=== PATIENT | female | born 1945 | race Caucasian/White ===

== ENCOUNTER 2017-07-04 09:45 | Outpatient (CLI) | payer MEDICARE, OTHER | END 2017-07-04 09:46 | disposition home or self-care (01) | LOC: BICMAMMO 09:45 | PROVIDERS: ATTEND Family Medicine | DX: Z12.31 Encounter for screening mammogram for malignant neoplasm of breast (principal) | CPT/HCPCS: 77063; 77067 ==

== ENCOUNTER 2018-04-11 09:39 | Outpatient (CLI) | payer MEDICARE, OTHER ==
--- NOTE | 2018-04-11 10:21 | RAD ---
TWO VIEWS CHEST: Comparison: 11-20-17 History: Dyspnea. FINDINGS: Two views of the chest shows a normal sized cardiomediastinal silhouette. There is no evidence of con solidation, mass, or pleural effusion. Degenerative changes are seen in the spine. IMPRESSION: No evidence of acute cardiopulmonary disease. POS: C
== END 2018-04-11 09:40 | disposition home or self-care (01) ==
LOC: RAD 09:39
PROVIDERS: ATTEND Internal Medicine Critical Care Medicine
DX: R06.00 Dyspnea, unspecified (principal)
CPT/HCPCS: 71046

== ENCOUNTER 2018-04-22 17:32 | Emergency (ER) | payer MEDICARE, OTHER ==
[~2018-04-22 17:32] MED LIST: ISOVUE-370 76%-LOCM 1 ML ONE
[2018-04-22] MEDS ORDERED: Ketorolac Tromethamine 30 MG/ML VIAL ONE (18:21)
[2018-04-22 18:22] LABS: #Basophils 0.1 thou/uL (0.0-0.2); #Eosinphils 0.3 thou/uL (0.0-0.7); #Monocytes 0.9 thou/uL (0.11-0.59); #Neutrophils 6.8 thou/uL (1.40-6.50); %Basophils 1.1 % (0.0-1.0); %Eosinophils 2.6 % (0.0-10.0); %Lymphocytes 27.3 % (21.0-51.0); %Monocytes 8.2 % (0.0-10.0); %Neutrophils 60.9 % (42.0-75.0); Hemoglobin 15.1 g/dL (12.0-16.0); Mean Corpuscular HGB CONC 32.8 g/dL (32.0-36.0); Mean Corpuscular Hemoglobin 30.3 pg (27.0-31.0); Mean Corpuscular Volume 92.5 fL (78.0-98.0); Mean Platelet Volume 7.9 fL (7.4-10.4); Platelet Count 251 thou/uL (130-400); Red Blood Cell (RBC) Count 4.99 mill/uL (4.20-5.40); White Blood Cell (WBC) Count 11.1 thou/uL (4.8-10.8)
[2018-04-22 18:46] LABS: ALT (SGPT) 15 U/L (8-55); AST (SGOT) 34 U/L (5-34); Albumin 4.2 g/dL (3.4-4.8); Alkaline Phosphatase 67 U/L (40-150); Anion Gap 18 mmol/L (10-20); BUN (Urea Nitrogen) 8 mg/dL (9.8-20.1); Bilirubin, Total 0.4 mg/dL (0.2-1.2); Calc. Creatinine Clearance 0 mL/min (70-130); Calcium 9.4 mg/dL (7.8-10.44); Carbon Dioxide 23 mmol/L (23-31); Chloride 99 mmol/L (98-107); Estimated GFR-MDRD 72; Glucose 123 mg/dL (83-110); Lipase 13 U/L (8-78); Potassium 4.8 mmol/L (3.5-5.1); Protein, Total 8.2 g/dL (6.0-8.3); Sodium 135 mmol/L (136-145)
--- NOTE | 2018-04-22 19:33 | CT ---
CT ABDOMEN AND PELVIS WITH IV CONTRAST: HISTORY: Left lower quadrant pain. FINDINGS: There are mild dependent changes in the lung bases. The liver, spleen, pancreas, adrenal glands, and kidneys are normal. No calcified gallstones are seen. No free air, free fluid, or lymphadenopathy is seen in the abdomen or pelvis. A small to moderate sized hiatal hernia is present. The small bowel loops are not abnormally dilated. There is sigmoid diverticulosis. There is thicken ing of a segment of the sigmoid colon, with pericolonic inflammatory changes in the left lower quadra nt, consistent with diverticulitis. No abnormally loculated fluid collection is seen to suggest absc ess formation. There are vascular calcifications without evidence of aneurysmal dilatation of the abdominal aorta. Degenerative changes are present in the spine. IMPRESSION: 1. Sigmoid diverticulitis in the left lower quadrant. No evidence of abscess formation. 2. Hiatal hernia. POS: VEE
== END 2018-04-22 20:22 | disposition home or self-care (01) ==
LOC: ERS 17:32
DX: K57.32 Diverticulitis of large intestine without perforation or abscess without bleeding (principal); E78.5 Hyperlipidemia, unspecified; I10 Essential (primary) hypertension; J42 Unspecified chronic bronchitis; Z87.891 Personal history of nicotine dependence; Z79.51 Long term (current) use of inhaled steroids; Z79.899 Other long term (current) drug therapy
CPT/HCPCS: 74177; 80053; 83690; 85025; 93005; 96361; 96374; J1885; Q9966

== ENCOUNTER 2018-05-22 02:00 | Inpatient (IN) | payer MEDICARE, OTHER ==
[2018-05-22 02:39] LABS: #Eosinphils 0.2 thou/uL (0.0-0.7); #Lymphocytes 0.9 thou/uL (1.20-3.40); #Monocytes 0.7 thou/uL (0.11-0.59); #Neutrophils 12.2 thou/uL (1.40-6.50); %Basophils 0.3 % (0.0-1.0); %Eosinophils 1.5 % (0.0-10.0); %Lymphocytes 6.4 % (21.0-51.0); %Neutrophils 86.8 % (42.0-75.0); Hemoglobin 15.7 g/dL (12.0-16.0); Mean Corpuscular HGB CONC 32.7 g/dL (32.0-36.0); Mean Corpuscular Hemoglobin 30.3 pg (27.0-31.0); Mean Corpuscular Volume 92.8 fL (78.0-98.0); Mean Platelet Volume 6.8 fL (7.4-10.4); Platelet Count 256 thou/uL (130-400); RBC Distribution Width 11.9 % (11.5-14.5); Red Blood Cell (RBC) Count 5.17 mill/uL (4.20-5.40); White Blood Cell (WBC) Count 14.1 thou/uL (4.8-10.8)
[2018-05-22] MEDS ORDERED: Acetaminophen 500 MG TAB ONE (02:49)
[2018-05-22 03:00] LABS: ALT (SGPT) 19 U/L (8-55); AST (SGOT) 18 U/L (5-34); Albumin 4.3 g/dL (3.4-4.8); Alkaline Phosphatase 64 U/L (40-150); Anion Gap 20 mmol/L (10-20); BUN (Urea Nitrogen) 14 mg/dL (9.8-20.1); Bilirubin, Total 0.9 mg/dL (0.2-1.2); Calc. Creatinine Clearance 0 mL/min (70-130); Calcium 9.8 mg/dL (7.8-10.44); Carbon Dioxide 20 mmol/L (23-31); Chloride 101 mmol/L (98-107); Estimated GFR-MDRD 68; Globulin 3.2 g/dL (2.4-3.5); Glucose 163 mg/dL (83-110); Potassium 3.9 mmol/L (3.5-5.1); Protein, Total 7.5 g/dL (6.0-8.3); Sodium 137 mmol/L (136-145)
[2018-05-22 03:04] LABS: Bilirubin Negative (Negative); Blood, Urine Small (Negative); Clarity CLEAR (Clear); Glucose, Urine (Dipstick) Negative (Negative); Leukocyte Small (Negative); Nitrite Negative (Negative); Protein, Urine (Dipstick) Trace mg/dL (Neg-Trace); Specific Gravity, Urine 1.013 (1.002-1.036); Urobilinogen 0.2 mg/dL (0.2-1.0)
[2018-05-22 03:07] LABS: Bacteria/HPF None Seen HPF (None Seen); Hyaline Casts/LPF 4-6 HYALINE CAST LPF (0-3 Hyaline); Pathc Cast-AUWi Flag 0.95 (0-2.49); RBC/HPF 0-3 HPF (0-3)
[2018-05-22] MEDS ORDERED: Vancomycin HCl 1.5 GM in Sodium Chloride 0.9% 250 ML 300 ML IVPB SCH (03:30)
[2018-05-22] MEDS ORDERED: Piperacillin/Tazobactam 4.5 GM VIAL ONE (04:00)
[2018-05-22] MEDS ORDERED: HYDROcodone/Acetaminophen 7.5/325 mg Tablet PO PRN (04:18)
[2018-05-22] MEDS ORDERED: Zolpidem Tartrate 5 MG TAB PO PRN (04:18)
[2018-05-22] MEDS ORDERED: Ondansetron PF 4 MG/2 ML Vial IVP PRN (04:18)
[2018-05-22] MEDS ORDERED: hydrALAZINE 20 MG/ML VIAL SLOW IVP PRN (07:39)
[2018-05-22] MEDS ORDERED: Sodium Chloride 0.65% Nasal 44 ML BOT EA NARE PRN (07:39)
[2018-05-22] MEDS ORDERED: Diabetic Tussin 200 MG/10 ML UDCUP PO PRN (07:39)
[2018-05-22] MEDS ORDERED: Eucerin (Mineral Oil/Petrolatum,White) 30 gm Jar TOP PRN (07:39)
[2018-05-22] MEDS ORDERED: Acetaminophen 325 MG TAB PO PRN (07:39)
[2018-05-22] MEDS ORDERED: Cepastat Lozenges 1 LOZ PO PRN (07:39)
[2018-05-22] MEDS ORDERED: Artificial Tears 18 DROP/0.9 ML EA EYE PRN (07:39)
[2018-05-22] MEDS ORDERED: Calcium Carbonate 500 MG ChewTAB PO PRN ×2 (07:39)
[2018-05-22] MEDS ORDERED: Ondansetron ODT 4 MG TAB SL PRN (07:39)
[2018-05-22] MEDS ORDERED: Loratadine 10 MG TAB PO PRN (07:39)
[2018-05-22] MEDS ORDERED: ISOVUE-370 76%-LOCM 1 ML ONE (07:56)
--- NOTE | 2018-05-22 08:10 | RAD ---
PORTABLE CHEST: 05/22/2018 PROVIDED CLINICAL HISTORY: Headache. Vomiting. COMPARISON: 11/11/2014 FINDINGS: The cardiac and mediastinal silhouette is unchanged in appearance. No focal consolidation, pleural f luid, or pneumothorax apparent. IMPRESSION: No evidence for an acute cardiopulmonary process. POS: OFF
--- NOTE | 2018-05-22 08:28 | CT ---
PRELIMINARY REPORT/[facility]/EMERGENTY AFTER-HOURS PROCEDURE CT Abdomen and Pelvis With Contrast EXAM DATE/TIME: 05/22/2018 3:43 AM CLINICAL HISTORY: 73 years old, female; Pain; Abdominal pain; Epigastric; Patient HX: 73f presents for the evaluation o f a headache, vomiting and feeling unwell. Patient reports headache started this evening. Reports dif fuse pain to the head. Also reports vomiting "violently" x 3 tonight. Reports she has felt feverish. Found to be tachycardic by ems. Reports chills. TECHNIQUE: Axial computed tomography images of the abdomen and pelvis with intravenous contrast. Coronal reformatted images were created and reviewed. COMPARISON: No relevant prior studies available. FINDINGS: Lower thorax: The visualized portions of the lung bases are normal. A moderate hiatal hernia is prese nt. ABDOMEN: Liver: There are no focal liver lesions identified. Gallbladder and bile ducts: The gallbladder is normal. There is no evidence of biliary ductal dilatio n. Pancreas: The pancreas appears normal. No ductal dilatation. Spleen: The spleen is normal. Adrenals: The adrenal glands are normal. Kidneys and ureters: The kidneys appear normal. No hydronephrosis. Stomach and bowel: The stomach is normal. Mild diverticulosis is present in the sigmoid and descendin g colon. The colon is normal. There are distended loops of small bowel within the LEFT abdomen with a brupt collapse in the LEFT lower quadrant consistent with small bowel obstruction. Appendix: A normal appendix is identified. PELVIS: Bladder: The bladder is normal. Reproductive: The uterus is not visualized, and may be atrophic or surgically absent. ABDOMEN and PELVIS: Intraperitoneal space: Normal. No free air. No significant fluid collection. Bones/joints: No acute fracture. No dislocation. The lumbar spine demonstrates moderate degenerative changes at multiple levels. Soft tissues: Unremarkable. Vasculature: The vasculature demonstrates diffuse moderate atherosclerotic calcification. Lymph nodes: Normal. No enlarged lymph nodes. IMPRESSION: Small bowel obstruction as above. Thank you for allowing us to participate in the care of your patient. Dictated and Authenticated by: Alexi Carrillo MD 05/22/2018 4:26 AM Central Time ([place] & [place]) CT ABDOMEN WITH CONTRAST: CT PELVIS WITH CONTRAST: HISTORY: Left-sided abdominal pain. COMPARISON: 04/22/2018 FINDINGS: This report is in agreement with the preliminary report by [facility]. There is a moderate hiatal hernia. There is appropriate enhancement of the solid organs. There is evidence of diverticulosis. No evidence of diverticulitis. There are distended small bowel loops. Distention of small bowel loops involve the proximal to mid small bowel. Distal small bowel loops are decompressed. There is concern for early/partial obstruction. POS: VEE
--- NOTE | 2018-05-22 08:29 | CT ---
PRELIMINARY REPORT/[facility]/EMERGENTY AFTER-HOURS PROCEDURE CT Head Without Contrast EXAM DATE/TIME: 05/22/2018 3:04 AM CLINICAL HISTORY: 73 years old, female; Pain; Headache; Headache not specified; Patient HX: 73f presents for the evalua tion of a headache, vomiting and feeling unwell. Patient reports headache started this evening. Repor ts diffuse pain to the head. Also reports vomiting "violently" x 3 tonight. Reports she has felt feverish. Found to be tachycardic by ems. Reports chills. TECHNIQUE: Axial computed tomography images of the head/brain without contrast. COMPARISON: No relevant prior studies available. FINDINGS: Brain: Normal. No hemorrhage. No significant white matter disease. No edema. Ventricles: Normal. No ventriculomegaly. Bones/joints: Unremarkable. No acute fracture. Sinuses: Visualized sinuses are unremarkable. No acute sinusitis. Mastoid air cells: Visualized mastoid air cells are unremarkable. No mastoid effusion. Soft tissues: Unremarkable. IMPRESSION: No acute intracranial hemorrhage. Thank you for allowing us to participate in the care of your patient. Dictated and Authenticated by: Alexi Carrillo MD 05/22/2018 4:20 AM Central Time ([place] & [place]) FINAL REPORT HEAD CT WITHOUT CONTRAST: HISTORY: Vomiting. Patient not feeling well. Headache. COMPARISON: None. FINDINGS: This report is in agreement with the preliminary report by [facility]. No acute intracranial process. POS: SJ
[2018-05-22] MEDS ORDERED: Famotidine 20 MG TAB ONE (08:45)
[2018-05-22] MEDS ORDERED: Enoxaparin Sodium 40 MG/0.4 ML SYRINGE ONE (08:45)
[2018-05-22] MEDS: Enoxaparin Sodium 40 MG/0.4 ML SYRINGE SC SCH (08:53)
[2018-05-22] MEDS: Atenolol 25 MG TAB PO SCH (08:53)
[2018-05-22] MEDS: Famotidine/PF 20 mg/2ml Vial SLOW IVP SCH ×2 (08:54→21:38)
[2018-05-22] MEDS: Famotidine 20 MG TAB PO SCH ×2 (08:54→21:37)
[2018-05-22] MEDS: Hydrochlorothiazide 25 MG TAB PO SCH (09:56)
[2018-05-22] MEDS: Sodium Chloride 0.9% 1,000 ML IV SCH (11:59)
--- NOTE | 2018-05-22 12:18 | HP ---
PRIMARY CARE PHYSICIAN: Dr. Velasquez Stein. REASON FOR ADMISSION: Dehydration, enteritis. HISTORY OF PRESENT ILLNESS: A 73-year-old female, who ate unusual food on . Per patient, food was not tested well. Subsequently on Monday night, she also had some [place] food. Monday morning, she started having loose stool and diarrhea with crampy abdominal pain. She was feeling nauseated and vomiting started next day on Monday. She had several times diarrhea and several times vomiting at home. She was feeling weak and tired. She was feeling subjective fever, but she did not measure temperature. In the emergency room, she was having temperature of 100.3 and she was severely tachycardic and had relatively low blood pressure. She appeared dehydrated. Her routine blood test was unremarkable, but she was evaluated with CT abdomen and pelvis, which showed enteritis. Her chest x-ray was unremarkable. After coming to emergency room, patient had 1 loose stool. She was feeling nauseated, but not having any vomiting further. As she was persistently tachycardic, we decided to keep this patient in the hospital for further evaluation and treatment. She denies any UTI symptoms. She denies any back pain. She denies any headache, chest pain or palpitation. Initially, when she arrived to emergency room at that time, she was having headache, but when I saw her in the emergency room at that time, her headache was subsided. She denies any melena or hematochezia. She reports that recently her primary care physician found murmur and that is why she was given referral to Cardiology and she has appointment with Dr. Zabala tomorrow. She denies any orthopnea, PND, or leg swelling. She denies any pleurisy or calf tenderness. REVIEW OF SYSTEMS: CONSTITUTIONAL: Negative for weight loss or gain, ability to conduct usual activities. SKIN: Negative for rash, itching. EYES: Negative for double vision, pain. ENT/MOUTH: Negative for nose bleeding, neck stiffness, pain, tenderness. CARDIOVASCULAR: Negative for palpitations, dyspnea on exertion, orthopnea. RESPIRATORY: Negative for shortness of breath, wheezing, cough, hemoptysis, fever or night sweats. GASTROINTESTINAL: Negative for poor appetite, abdominal pain, heartburn, nausea, vomiting, constipation, or diarrhea. GENITOURINARY: Negative for urgency, frequency, dysuria, nocturia. MUSCULOSKELETAL: Negative for pain, swelling. NEUROLOGIC/PSYCHIATRIC: Negative for anxiety, depression. ALLERGY/IMMUNOLOGIC: Negative for skin rash, bleeding tendency. Please see my HPI for pertinent positive and negative. All other review of systems reviewed and negative except as mentioned in HPI. ALLERGIES: LISINOPRIL. CURRENT HOME MEDICATIONS: 1. Atenolol 25 mg daily. 2. Hydrochlorothiazide 12.5 mg daily. 3. Pravastatin 20 mg at bedtime. 4. Protonix 40 mg p.o. daily. 5. Losartan 50 mg daily. 6. Singulair 10 mg daily. 7. Vitamin B12 1000 mcg p.o. daily. 8. Fish oil 1 capsule daily. 9. Centrum Silver 1 tablet p.o. daily. PAST MEDICAL HISTORY: Hypertension, gastroesophageal reflux disease, allergic rhinitis, history of diverticulitis, hiatal hernia, chronic bronchitis. PAST SURGICAL HISTORY: Hysterectomy in 1987, tubal ligation in 1981. PAST PSYCHIATRIC HISTORY: Reviewed and negative. SOCIAL HISTORY: The patient is living at home. She has a history of smoking about 1.5 pack per day. She quit smoking about 10 years ago. She denies any current smoking, alcohol, or other illicit drug abuse. FAMILY HISTORY: No family history of coronary artery disease, stroke, or cancer. EMERGENCY ROOM COURSE: The patient is given vancomycin, Zosyn, IV fluid, and Tylenol Extra Strength. PHYSICAL EXAMINATION: VITAL SIGNS: On arrival, blood pressure 109/60, temperature 100, pulse 132, respiratory rate 18, saturation 94% on room air, weight 96.6 kg. GENERAL: The patient is currently alert, awake, in mild distress. HEENT: Head; normocephalic, atraumatic. Eyes; pupils round, reactive to light. Extraocular muscle intact. ENT: Oropharynx within normal limits. Somewhat dry appearing mucous membranes. No oral lesion. No pharyngeal erythema. No exudate. NECK: Supple. No JVD. No thyromegaly. No carotid bruit. No jugular venous distention. LUNGS: Clear to auscultation without any rhonchi or rales. CARDIAC: S1, S2 appears regular. Systolic murmur noted parasternally as well as aortic area. No gallop, no rub. ABDOMEN: Soft, bowel sounds present. Periumbilical discomfort noted. No peritoneal sign. No guarding. No rigidity. No rebound. No suprapubic tenderness. BACK: No CVA tenderness. EXTREMITIES: Upper extremities, passive movement of all joints are normal. Lower extremity, no edema, no calf tenderness. SKIN: No skin rash. HEMATOLOGICAL: No lymphadenopathy. PSYCHIATRIC: Normal affect. NEUROLOGIC: Nonfocal examination. She moves all 4 limbs. Plantar bilateral flexor. SIGNIFICANT LABORATORY DATA: EKG showing sinus tachycardia, left atrial enlargement, nonspecific ST-T changes. CT brain based on my review no acute intracranial process. Chest x-ray based on my review, COPD type of changes, but no acute process. CT abdomen and pelvis reviewed by me and consistent with small bowel enteritis. CBC; WBC 14.1, hemoglobin 15.7, platelet 256 with left shift. BMP; Sodium 137, potassium 3.9, chloride 101, carbon dioxide 20, BUN 14, creatinine 0.83, glucose 163, calcium 9.8. LFT; AST 18, ALT 19, alkaline phosphatase 64, and albumin 4.3. Lactic acid 2.3, then 2.0. Urinalysis, leukocyte esterase small. Influenza A and B negative. ASSESSMENT/PLAN: 1. Sepsis criteria. She had in the emergency room, temperature 100 leukocytosis, tachycardia, and relatively low blood pressure. Source of infection is gastrointestinal on urinary tract infection. She has enteritis and urinary tract infection. The patient will be treated with empiric ciprofloxacin and she will be given IV fluid. We will follow up on culture result. We will send stool for infection workup to rule out associated infection. 2. Acute enteritis, presumed infectious secondary to food poisoning versus food-borne organism. We will check ova and parasite, culture stool for Campylobacter antigen and stool for Clostridium difficile. The patient will be treated empirically with ciprofloxacin and symptomatic treatment. 3. Dehydration. The patient is clinically dehydrated. She will be given IV fluid with NS at 70 mL/hour. 4. Murmur. The patient wants to be evaluated with echocardiography. She has appointment with Cardiology tomorrow. She has significant murmur and we will do echocardiography. Depending upon echo finding, we will decide whether we need to involve Cardiology or not. 5. Hypertension. We will continue with atenolol 25 mg p.o. daily, hydrochlorothiazide 12.5 mg p.o. daily and Benicar 20 mg p.o. daily. 6. Dyslipidemia. We will continue pravastatin 20 mg p.o. at bedtime. 7. Deep venous thrombosis prophylaxis. Lovenox 40 mg subcu daily. 8. Gastrointestinal prophylaxis, Pepcid 20 mg p.o. b.i.d. 9. Code status. The patient is full code. The patient does not have any surrogate decision maker. 10. Urinary tract infection. The patient is already on Cipro therapy and will follow up on culture result. DISPOSITION PLAN: Based on clinical course. We are expecting the patient's stay in hospital more than 2 midnights. Plan of care discussed with the patient in detail. Job ID: [id number]
[2018-05-22 19:38] VITALS: BMI 35.5
[2018-05-22] MEDS: Pravastatin Sodium 20 MG TAB PO SCH (21:38)
[2018-05-22] MEDS: Losartan 25 MG TAB PO SCH (21:38)
[2018-05-23] MEDS: Sodium Chloride 0.9% 1,000 ML IV SCH (04:19)
[2018-05-23 05:18] LABS: #Eosinphils 0.3 thou/uL (0.0-0.7); #Lymphocytes 2.1 thou/uL (1.20-3.40); #Monocytes 0.6 thou/uL (0.11-0.59); #Neutrophils 2.5 thou/uL (1.40-6.50); %Basophils 0.5 % (0.0-1.0); %Lymphocytes 37.9 % (21.0-51.0); %Monocytes 11.4 % (0.0-10.0); %Neutrophils 45.2 % (42.0-75.0); Hemoglobin 12.9 g/dL (12.0-16.0); Mean Corpuscular Hemoglobin 30.5 pg (27.0-31.0); Mean Corpuscular Volume 92.5 fL (78.0-98.0); Mean Platelet Volume 6.8 fL (7.4-10.4); Platelet Count 218 thou/uL (130-400); RBC Distribution Width 11.7 % (11.5-14.5); Red Blood Cell (RBC) Count 4.22 mill/uL (4.20-5.40); White Blood Cell (WBC) Count 5.6 thou/uL (4.8-10.8)
[2018-05-23 07:11] LABS: Anion Gap 10 mmol/L (10-20); BUN (Urea Nitrogen) 8 mg/dL (9.8-20.1); Calc. Creatinine Clearance 130 mL/min (70-130); Calcium 8.2 mg/dL (7.8-10.44); Carbon Dioxide 26 mmol/L (23-31); Chloride 106 mmol/L (98-107); Estimated GFR-MDRD Greater than 90; Glucose 105 mg/dL (83-110); Potassium 3.3 mmol/L (3.5-5.1); Sodium 139 mmol/L (136-145)
[2018-05-23] MEDS ORDERED: Potassium Chloride 20 MEQ TAB PO SCH (07:15)
[2018-05-23] MEDS ORDERED: Sodium Chloride 0.9% 10 ML ONE (07:48)
[2018-05-23] MEDS: Atenolol 25 MG TAB PO SCH (08:24)
[2018-05-23] MEDS: Hydrochlorothiazide 25 MG TAB PO SCH (08:24)
[2018-05-23] MEDS: Enoxaparin Sodium 40 MG/0.4 ML SYRINGE SC SCH (08:25)
[2018-05-23] MEDS ORDERED: Montelukast Sodium 10 mg Tablet PO SCH (09:00)
--- NOTE | 2018-05-23 10:54 | PDOC.PN ---
- Subjective Encounter Start Date: 05/23/18 Encounter Start Time: 08:00 -: old records requested/rev Patient seen and examined. No new complaints. No overnight events she has diarrhoea, no pain - Objective Resuscitation Status - Order Detail: 05/22/18 07:39 Resuscitation Status Routine Resuscitation Status: FULL: Full Resuscitation MAR Reviewed: Yes Vital Signs & Weight: Vital Signs (12 hours) Temp Pulse Resp BP BP Pulse Ox 05/23/18 08:24 96 05/23/18 08:20 97.4 F L 96 18 135/71 95 05/23/18 04:00 97.3 F L 90 20 133/76 94 L 05/23/18 00:00 99.4 F 98 18 125/61 92 L Weight Weight 220 lb 6.4 oz I&O: 05/22/18 05/23/18 05/24/18 06:59 06:59 06:59 Intake Total 1385 Output Total 900 Balance 485 Result Diagrams: 05/23/18 04:49 05/23/18 04:49 EKG Reviewed by me: Yes Phys Exam - Physical Examination Constitutional: NAD HEENT: PERRLA, moist MMs, sclera anicteric Neck: no JVD, supple Respiratory: no wheezing, no rales, no rhonchi Cardiovascular: RRR, no rub SM+ Gastrointestinal: soft, non-tender, no distention, positive bowel sounds Musculoskeletal: no edema, pulses present Neurological: non-focal, normal sensation, moves all 4 limbs Lymphatic: no nodes Psychiatric: normal affect, A&O x 3 Skin: no rash, normal turgor Dx/Plan (1) Dehydration Code(s): E86.0 - DEHYDRATION Status: Acute (2) Enteritis Code(s): K52.9 - NONINFECTIVE GASTROENTERITIS AND COLITIS, UNSPECIFIED Status : Acute (3) Hypokalemia Code(s): E87.6 - HYPOKALEMIA Status: Acute (4) Lactic acidosis Code(s): E87.2 - ACIDOSIS Status: Acute (5) Dyslipidemia Code(s): E78.5 - HYPERLIPIDEMIA, UNSPECIFIED Status: Chronic (6) GERD (gastroesophageal reflux disease) Code(s): K21.9 - GASTRO-ESOPHAGEAL REFLUX DISEASE WITHOUT ESOPHAGITIS Status: Chronic (7) Hypertension Code(s): I10 - ESSENTIAL (PRIMARY) HYPERTENSION Status: Chronic (8) Obesity (BMI 30-39.9) Code(s): E66.9 - OBESITY, UNSPECIFIED Status: Chronic (9) Murmur, cardiac Code(s): R01.1 - CARDIAC MURMUR, UNSPECIFIED Status: Acute - Plan cont current plan of care, continue antibiotics * dc ivf * dc tele * transfer to medical * medication reviewed as below * symptomatic treatment * echo today * expecting discharge tomorrow if stable * await stool studies. Review of Systems - Review of Systems ENT: negative: Ear Pain, Ear Discharge, Nose Pain, Nose Discharge, Nose Congestion, Mouth Pain, Mouth Swelling, Throat Pain, Throat Swelling, Other Respiratory: negative: Cough, Dry, Shortness of Breath, Hemoptysis, SOB with Excertion, Pleuritic Pain, Sputum, Wheezing Cardiovascular: negative: chest pain, palpitations, orthopnea, paroxysmal nocturnal dyspnea, edema, light headedness, other Gastrointestinal: Diarrhea. negative: Nausea, Vomiting, Abdominal Pain, Constipation, Melena, Hematochezia, Other Genitourinary: negative: Dysuria, Frequency, Incontinence, Hematuria, Retention , Other Musculoskeletal: negative: Neck Pain, Shoulder Pain, Arm Pain, Back Pain, Hand Pain, Leg Pain, Foot Pain, Other Skin: negative: Rash, Lesions, Raimundo, Bruising, Other - Medications/Allergies Allergies/Adverse Reactions: Allergies Allergy/AdvReac Type Severity Reaction Status Date / Time lisinopril Allergy Unknown Verified 05/22/18 19:52 Medications: Current Medications Acetaminophen (Tylenol) 650 mg PO Q4H PRN PRN Reason: Headache/Fever/Mild Pain (1-3) Last Admin: 05/22/18 21:42 Dose: 650 mg Hydrocodone Bitart/Acetaminophen ([place] 7.5/325) 1 tab PO Q4H PRN PRN Reason: Moderate Pain (4-6) Artificial Tears (Tears Naturale) 2 drop EA EYE PRN PRN PRN Reason: Dry Eyes Atenolol (Tenormin) 25 mg PO DAILY [facility] Last Admin: 05/23/18 08:24 Dose: 25 mg Calcium Carbonate (Tums) 1,000 mg PO Q4H PRN PRN Reason: Heartburn or Indigestion Enoxaparin Sodium (Lovenox) 40 mg SC 0900 [facility] Last Admin: 05/23/18 08:25 Dose: 40 mg Guaifenesin (Robitussin Sf) 200 mg PO Q4H PRN PRN Reason: Cough Hydralazine HCl (Apresoline) 10 mg SLOW IVP Q4H PRN PRN Reason: SBP > 180 and HR < 70 Hydrochlorothiazide (Hydrochlorothiazide) 12.5 mg PO DAILY [facility] Last Admin: 05/23/18 08:24 Dose: 12.5 mg Ciprofloxacin/Dextrose 400 mg/ (Device) 200 mls @ 200 mls/hr IVPB Q12HR [facility] Last Admin: 05/23/18 08:30 Dose: 200 mls Loratadine (Claritin) 10 mg PO DAILYPRN PRN PRN Reason: Sinus Symptoms Losartan Potassium (Cozaar) 50 mg PO HS [facility] Last Admin: 05/22/18 21:38 Dose: 50 mg Mineral Oil/White Petrolatum (Eucerin Cream) 0 gm TOP BIDPRN PRN PRN Reason: Dry Skin Montelukast Sodium (Singulair) 10 mg PO HS [facility] Ondansetron HCl (Zofran) 4 mg IVP Q6H PRN PRN Reason: Nausea/Vomiting Ondansetron HCl (Zofran Odt) 4 mg SL Q6H PRN PRN Reason: Nausea/Vomiting Pantoprazole Sodium (Protonix) 40 mg PO 1600 [facility] Pravastatin Sodium (Pravachol) 20 mg PO HS [facility] Last Admin: 05/22/18 21:38 Dose: 20 mg Sodium Chloride ([place] Nasal [place] 0.65%) 0 ml EA NARE QIDPRN PRN PRN Reason: Nasal Congestion Throat Lozenges (Cepastat Lozenges) 1 lindsey PO Q2H PRN PRN Reason: Sore Throat Zolpidem Tartrate (Ambien) 5 mg PO HSPRN PRN PRN Reason: Insomnia
[2018-05-23] MEDS: Pravastatin Sodium 20 MG TAB PO SCH (21:18)
[2018-05-23] MEDS: Losartan 25 MG TAB PO SCH (21:18)
[2018-05-24 04:40] VITALS: TEMP 98.1
[2018-05-24 08:21] VITALS: BP 124/76
[2018-05-24] MEDS: Atenolol 25 MG TAB PO SCH (08:36)
[2018-05-24] MEDS: Enoxaparin Sodium 40 MG/0.4 ML SYRINGE SC SCH (08:36)
[2018-05-24] MEDS: Hydrochlorothiazide 25 MG TAB PO SCH (08:36)
--- NOTE | 2018-05-24 10:07 | PDOC.PN ---
- Subjective Encounter Start Date: 05/24/18 Encounter Start Time: 09:20 Patient seen and examined. No new complaints. No overnight events - Objective Resuscitation Status - Order Detail: 05/22/18 07:39 Resuscitation Status Routine Resuscitation Status: FULL: Full Resuscitation MAR Reviewed: Yes Vital Signs & Weight: Vital Signs (12 hours) Temp Pulse Resp BP Pulse Ox 05/24/18 08:36 78 05/24/18 08:21 98.1 F 78 18 124/76 94 L 05/24/18 08:00 95 05/24/18 04:00 98.1 F 86 18 136/82 95 05/24/18 00:00 98.2 F 85 18 113/72 96 Weight Weight 220 lb 6.4 oz I&O: 05/23/18 05/24/18 05/25/18 06:59 06:59 06:59 Intake Total 1385 1290 240 Output Total 900 730 Balance 485 560 240 Result Diagrams: 05/23/18 04:49 05/23/18 04:49 Phys Exam - Physical Examination Constitutional: NAD HEENT: PERRLA, moist MMs, sclera anicteric Neck: no JVD, supple Respiratory: no wheezing, no rales, no rhonchi Cardiovascular: RRR, no significant murmur, no rub Gastrointestinal: soft, non-tender, no distention, positive bowel sounds Musculoskeletal: no edema, pulses present Neurological: non-focal, normal sensation, moves all 4 limbs Lymphatic: no nodes Psychiatric: normal affect, A&O x 3 Skin: no rash, normal turgor Dx/Plan (1) Dehydration Code(s): E86.0 - DEHYDRATION Status: Acute (2) Enteritis Code(s): K52.9 - NONINFECTIVE GASTROENTERITIS AND COLITIS, UNSPECIFIED Status : Acute (3) Hypokalemia Code(s): E87.6 - HYPOKALEMIA Status: Acute (4) Lactic acidosis Code(s): E87.2 - ACIDOSIS Status: Acute (5) Dyslipidemia Code(s): E78.5 - HYPERLIPIDEMIA, UNSPECIFIED Status: Chronic (6) GERD (gastroesophageal reflux disease) Code(s): K21.9 - GASTRO-ESOPHAGEAL REFLUX DISEASE WITHOUT ESOPHAGITIS Status: Chronic (7) Hypertension Code(s): I10 - ESSENTIAL (PRIMARY) HYPERTENSION Status: Chronic (8) Obesity (BMI 30-39.9) Code(s): E66.9 - OBESITY, UNSPECIFIED Status: Chronic (9) Murmur, cardiac Code(s): R01.1 - CARDIAC MURMUR, UNSPECIFIED Status: Acute - Plan cont current plan of care, continue antibiotics * medication reviewed as below * symptomatic treatment * see discharge telma. Review of Systems - Review of Systems ENT: negative: Ear Pain, Ear Discharge, Nose Pain, Nose Discharge, Nose Congestion, Mouth Pain, Mouth Swelling, Throat Pain, Throat Swelling, Other Respiratory: negative: Cough, Dry, Shortness of Breath, Hemoptysis, SOB with Excertion, Pleuritic Pain, Sputum, Wheezing Cardiovascular: negative: chest pain, palpitations, orthopnea, paroxysmal nocturnal dyspnea, edema, light headedness, other Gastrointestinal: negative: Nausea, Vomiting, Abdominal Pain, Diarrhea, Constipation, Melena, Hematochezia, Other Genitourinary: negative: Dysuria, Frequency, Incontinence, Hematuria, Retention , Other Musculoskeletal: negative: Neck Pain, Shoulder Pain, Arm Pain, Back Pain, Hand Pain, Leg Pain, Foot Pain, Other - Medications/Allergies Allergies/Adverse Reactions: Allergies Allergy/AdvReac Type Severity Reaction Status Date / Time lisinopril Allergy Unknown Verified 05/22/18 19:52 Medications: Current Medications Acetaminophen (Tylenol) 650 mg PO Q4H PRN PRN Reason: Headache/Fever/Mild Pain (1-3) Last Admin: 05/22/18 21:42 Dose: 650 mg Hydrocodone Bitart/Acetaminophen ([place] 7.5/325) 1 tab PO Q4H PRN PRN Reason: Moderate Pain (4-6) Artificial Tears (Tears Naturale) 2 drop EA EYE PRN PRN PRN Reason: Dry Eyes Atenolol (Tenormin) 25 mg PO DAILY [facility] Last Admin: 05/24/18 08:36 Dose: 25 mg Calcium Carbonate (Tums) 1,000 mg PO Q4H PRN PRN Reason: Heartburn or Indigestion Enoxaparin Sodium (Lovenox) 40 mg SC 0900 [facility] Last Admin: 05/24/18 08:36 Dose: 40 mg Guaifenesin (Robitussin Sf) 200 mg PO Q4H PRN PRN Reason: Cough Hydralazine HCl (Apresoline) 10 mg SLOW IVP Q4H PRN PRN Reason: SBP > 180 and HR < 70 Hydrochlorothiazide (Hydrochlorothiazide) 12.5 mg PO DAILY [facility] Last Admin: 05/24/18 08:36 Dose: 12.5 mg Ciprofloxacin/Dextrose 400 mg/ (Device) 200 mls @ 200 mls/hr IVPB Q12HR [facility] Last Admin: 05/24/18 08:35 Dose: 200 mls Loratadine (Claritin) 10 mg PO DAILYPRN PRN PRN Reason: Sinus Symptoms Losartan Potassium (Cozaar) 50 mg PO HS [facility] Last Admin: 05/23/18 21:18 Dose: 50 mg Mineral Oil/White Petrolatum (Eucerin Cream) 0 gm TOP BIDPRN PRN PRN Reason: Dry Skin Montelukast Sodium (Singulair) 10 mg PO HS [facility] Ondansetron HCl (Zofran) 4 mg IVP Q6H PRN PRN Reason: Nausea/Vomiting Ondansetron HCl (Zofran Odt) 4 mg SL Q6H PRN PRN Reason: Nausea/Vomiting Pantoprazole Sodium (Protonix) 40 mg PO 1600 [facility] Last Admin: 05/23/18 16:41 Dose: 40 mg Pravastatin Sodium (Pravachol) 20 mg PO HS [facility] Last Admin: 05/23/18 21:18 Dose: 20 mg Sodium Chloride ([place] Nasal [place] 0.65%) 0 ml EA NARE QIDPRN PRN PRN Reason: Nasal Congestion Throat Lozenges (Cepastat Lozenges) 1 lindsey PO Q2H PRN PRN Reason: Sore Throat Zolpidem Tartrate (Ambien) 5 mg PO HSPRN PRN PRN Reason: Insomnia
--- NOTE | 2018-05-24 11:37 | DIS ---
DATE OF ADMISSION: 05/22/2018 DATE OF DISCHARGE: 05/24/2018 PRIMARY CARE PHYSICIAN: Dr. Velasquez Stein. DISCHARGE DISPOSITION: Home. PRIMARY DISCHARGE DIAGNOSES: 1. Acute enteritis, presumed infection. 2. Dehydration, corrected. 3. Hypokalemia, corrected. 4. Lactic acidosis, corrected. 5. Urinary tract infection. 6. Cardiac murmur. SECONDARY DISCHARGE DIAGNOSES: Obesity with BMI 35, hypertension, gastroesophageal reflux disease, dyslipidemia. PRIMARY PROCEDURE/OPERATION: None. RADIOLOGICAL INVESTIGATION: Abdomen and pelvis CT scan consistent with enteritis. Chest x-ray normal. CT brain negative. SIGNIFICANT LABORATORY DATA: WBC 5.6, hemoglobin 12.9, platelet 218. Sodium 139, potassium 3.3, BUN 8, creatinine 0.60, calcium 8.2. LFT normal. Urinalysis suggestive of UTI. Urine culture grew beta-hemolytic Streptococcus. Stool for infection workup negative. DISCHARGE MEDICATIONS: 1. Atenolol 25 mg daily. 2. Hydrochlorothiazide 12.5 mg daily. 3. Losartan 50 mg at bedtime. 4. Singulair 10 mg daily. 5. Protonix 40 mg daily. 6. Pravastatin 20 mg p.o. q.h.s. 7. Cipro 500 mg b.i.d. for 5 days. 8. Florastor 250 mg p.o. daily for 5 days. CONTRAINDICATION: None. CODE STATUS: Full code. INPATIENT BOBTAIL DRIVER: None. ALLERGIES: LISINOPRIL. DISCHARGE PLAN: Posthospital, the patient will follow up with primary care physician in 1 week. The patient will make appointment with Cardiology. HOSPITAL COURSE: A 73-year-old female, who was admitted by me. Please see my HPI for further details. The patient ate some [place] food and subsequently, she was having diarrhea and started nausea and vomiting. She got dehydrated. She was becoming weak and that is why she was admitted in the hospital. Her stool study for infection came back negative. Her CT abdomen and pelvis was consistent with enteritis. She had urinalysis, which was consistent with UTI. The patient was treated with Cipro while in the hospital. She was hydrated with IV fluid and recollected her abnormal electrolytes. Her CBC improved. BMP improved. She is completely asymptomatic. She is tolerating p.o. well, ambulatory, and hemodynamically stable. On discharge, we are changing to p.o. Cipro for another 5 days. The patient was found with murmur and that is why we did echocardiography. Official report of echocardiography is pending. She will follow up with Cardiology after discharge. The patient is seen and examined at the bedside today. Please see my progress note from today for further detail. Job ID: [id number]
--- NOTE | 2018-05-24 15:12 | PQF ---
DATE: 05-24-18 ATTN: DR. MALINA SAMS Please exercise your independent, professional judgment in responding to the clarification form. Clinical indicators are provided on the bottom of this form for your review Please check appropriate box(s) to clarify if the following diagnosis has been ruled in or ruled out: SEPSIS [ x ] Ruled in diagnosis [ ] Continue to treat [ x ] Resolved [ ] Ruled out diagnosis [ ] Other diagnosis [ ] Unable to determine In addition, please specify: Present on Admission (POA): [ x ] Yes [ ] No [ ] Unable to determine For continuity of documentation, please document condition throughout progress notes and discharge summary. Thank You. CLINICAL INDICATORS - SIGNS / SYMPTOMS / LABS ER DX: SEPSIS, PERSISTENT TACHYCARDIA, SMALL BOWEL ENTERITIS H&P 05-22-18: SEPSIS CRITERIA. SHE HAD IN THE R, TEMP: 100, LEUKOCYTOSIS, TACHYCARDIA, AND RELATIVELY LOW BP. SOURCE OF INFECTION IS GI ON UTI. WBC: 05-22-18: 14.1 LACTIC ACID: 05-22-18: 2.3 PULSE: 05-22-18: 109, 99, 98 RISK FACTORS: H&P 05-22-18: SEPSIS CRITERIA. SHE HAD IN THE R, TEMP: 100, LEUKOCYTOSIS, TACHYCARDIA, AND RELATIVELY LOW BP. SOURCE OF INFECTION IS GI ON UTI. TREATMENTS: ER: ZOSYN IV, IVF NS, VANCOMYCIN IV, IVF NS (This form is maintained as a part of the permanent medical record) 2014 [employer] All Rights Reserved VICENTE [email or web address] Office: [phone] [facility]CH[facility]ATRIC CENTERGlenny
[2018-05-24] MEDS ORDERED: Montelukast Sodium 10 mg Tablet PO SCH (21:00)
--- NOTE | 2018-05-26 18:46 | EKG ---
Test Reason : Blood Pressure : / mmHG Vent. Rate : 127 BPM Atrial Rate : 127 BPM P-R Int : 148 ms QRS Dur : 068 ms QT Int : 304 ms P-R-T Axes : 050 032 052 degrees QTc Int : 441 ms Sinus tachycardia Left atrial enlargement Nonspecific ST abnormality Abnormal ECG Confirmed by KRANTHI CARREON, PEDRO PABLO Trevino ([id number]), news copy editor EFRAIN BLAKE ([id number]) on 05/26/2018 6:46:03 PM Referred By: Confirmed By:PEDRO PABLO CRISOSTOMO MD
== END 2018-05-24 11:23 | disposition home or self-care (01) | DRG 872 ==
LOC: ERS 02:00 → ERHOLD 04:02 → 2NO 16:45 → T4-B 05-23 22:40
PROVIDERS: ADMIT Internal Medicine; ATTEND Internal Medicine
DX: A41.9 Sepsis, unspecified organism (principal); N39.0 Urinary tract infection, site not specified; E87.2 Acidosis; K52.9 Noninfective gastroenteritis and colitis, unspecified; I10 Essential (primary) hypertension; K21.9 Gastro-esophageal reflux disease without esophagitis; E86.0 Dehydration; R01.1 Cardiac murmur, unspecified; E78.5 Hyperlipidemia, unspecified; E87.6 Hypokalemia; E66.9 Obesity, unspecified; F17.210 Nicotine dependence, cigarettes, uncomplicated; Z88.8 Allergy status to other drugs, medicaments and biological substances; Z79.899 Other long term (current) drug therapy; Z90.710 Acquired absence of both cervix and uterus; Z98.51 Tubal ligation status; Z68.35 Body mass index [BMI] 35.0-35.9, adult
CPT/HCPCS: 36415; 70450; 71045; 74177; 80048; 80053; 81003; 81015; 83605; 85025; 87040; 87045; 87046; 87081; 87086; 87324; 87328; 87329; 87449; 87804; 87899; 93005; 93306; 96361; 96365; 96366; 96367; J0744; J1650; J2543; J3370; J7050; Q9966

== ENCOUNTER 2018-07-20 09:44 | Outpatient (CLI) | payer MEDICARE, OTHER ==
--- NOTE | 2018-07-20 10:32 | MMO ---
Bilateral MAMMO Bilat Screen [facility]. CLINICAL HISTORY: Patient is 73 years old and is seen for screening. The patient has no family history of breast cancer. The patient has no personal history of cancer. VIEWS: The views performed were: bilateral craniocaudal with tomosynthesis and bilateral mediolateral oblique with tomosynthesis. FILMS COMPARED: The present examination has been compared to prior imaging studies performed at [facility] on 07/04/2017, and at [facility] [place] on 11/25/2011. MAMMOGRAM FINDINGS: There are scattered fibroglandular densities. There are benign appearing calcifications seen in both breasts. There are no suspicious masses, suspicious calcifications, or new areas of architectural distortion. IMPRESSION: THERE IS NO MAMMOGRAPHIC EVIDENCE OF MALIGNANCY. A ROUTINE FOLLOW-UP MAMMOGRAM IN 1 YEAR IS RECOMMENDED. THE RESULTS OF THIS EXAM WERE SENT TO THE PATIENT. ACR BI-RADS Category 2 - Benign finding MAMMOGRAPHY NOTE: 1. A negative mammogram report should not delay a biopsy if a dominant of clinically suspicious mass is present. 2. Approximately 10% to 15% of breast cancers are not detected by mammography. 3. Adenosis and dense breasts may obscure an underlying neoplasm.
== END 2018-07-20 09:45 | disposition home or self-care (01) ==
LOC: BICMAMMO 09:44
PROVIDERS: ATTEND Internal Medicine
DX: Z12.31 Encounter for screening mammogram for malignant neoplasm of breast (principal)
CPT/HCPCS: 77063; 77067

== ENCOUNTER 2018-08-21 08:00 | Outpatient (CLI) | payer MEDICARE, OTHER ==
--- NOTE | 2018-08-21 08:16 | RAD ---
XR Chest Pa Lat @ [facility] HISTORY: Dyspnea COMPARISON: 04/11/2018 FINDINGS: The heart size is normal. The aorta is tortuous. The lungs are well expanded without focal areas of consolidation, pneumothorax or pleural effusions. There are degenerative changes in the spine IMPRESSION: No radiographic evidence of acute cardiopulmonary process.
== END 2018-08-21 08:01 | disposition home or self-care (01) ==
LOC: RAD 08:00
PROVIDERS: ATTEND Internal Medicine Critical Care Medicine
DX: R06.00 Dyspnea, unspecified (principal)
CPT/HCPCS: 71046

== ENCOUNTER 2018-08-23 14:28 | Outpatient (CLI) | payer MEDICARE, OTHER ==
--- NOTE | 2018-08-23 14:59 | RAD ---
LUMBAR SPINE 2 VIEWS: HISTORY: Low back pain. FINDINGS/IMPRESSION: Degenerative changes are present. There is mild anterior wedging of the superior end plates of L1 an d L2 vertebral bodies. Minimal retrolisthesis of L2 over L3 and L3 over L4 vertebral bodies is seen. There are vascular calcifications. POS: OFF
--- NOTE | 2018-08-23 15:00 | RAD ---
LEFT HIP 2 VIEWS: HISTORY: Left hip pain, fall, 2 years ago. FINDINGS/IMPRESSION: Mild degenerative changes are seen. No fracture, dislocation, or bone destruction is identified. POS: OFF
== END 2018-08-23 14:29 | disposition home or self-care (01) ==
LOC: BICRAD 14:28
PROVIDERS: ATTEND Physical Medicine & Rehabilitation
DX: M54.5 Low back pain (principal); M25.552 Pain in left hip; M16.12 Unilateral primary osteoarthritis, left hip; M47.816 Spondylosis without myelopathy or radiculopathy, lumbar region; M43.16 Spondylolisthesis, lumbar region; I70.90 Unspecified atherosclerosis
CPT/HCPCS: 72100

== ENCOUNTER 2020-07-16 09:39 | Outpatient (CLI) | payer MEDICARE, OTHER ==
[2020-07-16] MEDS ORDERED: Magnevist 469MG/ML 20 ML VIAL ONE (15:11)
== END 2020-07-16 09:40 | disposition home or self-care (01) ==
LOC: BICMRI 09:39
PROVIDERS: ATTEND Psychiatry & Neurology Neurology
DX: G31.84 Mild cognitive impairment of uncertain or unknown etiology (principal); M50.20 Other cervical disc displacement, unspecified cervical region; R51.9 Headache, unspecified; I67.82 Cerebral ischemia; M47.812 Spondylosis without myelopathy or radiculopathy, cervical region
CPT/HCPCS: 70553; 72141; 82565; A9579

== ENCOUNTER 2021-10-08 02:59 | Inpatient (IN) | payer MEDICARE, OTHER ==
[2021-10-08 03:56] LABS: #Basophils 0.1 thou/uL (0.0-0.2); #Eosinphils 0.3 thou/uL (0.0-0.7); #Lymphocytes 2.5 thou/uL (1.20-3.40); #Monocytes 0.6 thou/uL (0.11-0.59); #Neutrophils 4.1 thou/uL (1.40-6.50); %Basophils 1.5 % (0.0-1.0); %Eosinophils 4.2 % (0.0-10.0); %Lymphocytes 33.2 % (21.0-51.0); %Monocytes 7.8 % (0.0-10.0); %Neutrophils 53.3 % (42.0-75.0); Hemoglobin 13.8 g/dL (12.0-16.0); Mean Corpuscular HGB CONC 32.6 g/dL (32.0-36.0); Mean Corpuscular Hemoglobin 29.2 pg (27.0-31.0); Mean Corpuscular Volume 89.4 fL (78.0-98.0); Mean Platelet Volume 7.4 fL (7.4-10.4); Platelet Count 254 thou/uL (130-400); Red Blood Cell (RBC) Count 4.71 mill/uL (4.20-5.40); White Blood Cell (WBC) Count 7.7 thou/uL (4.8-10.8)
[2021-10-08 04:05] LABS: INR-International Normal Ratio 0.9; PTT 30.2 sec (22.9-36.1); Prothrombin Time 12.7 sec (12.0-14.7)
[2021-10-08 04:15] LABS: ALT (SGPT) 9 U/L (8-55); AST (SGOT) 13 U/L (5-34); Alkaline Phosphatase 55 U/L (40-110); Anion Gap 15 mmol/L (10-20); BUN (Urea Nitrogen) 11 mg/dL (9.8-20.1); Bilirubin, Total 0.5 mg/dL (0.2-1.2); Calc. Creatinine Clearance 0 mL/min (70-130); Calcium 9.2 mg/dL (7.8-10.44); Carbon Dioxide 26 mmol/L (23-31); Chloride 103 mmol/L (98-107); Estimated GFR 81; Globulin 2.7 g/dL (2.4-3.5); Glucose 131 mg/dL (83-110); Potassium 3.6 mmol/L (3.5-5.1); Protein, Total 6.7 g/dL (5.8-8.1); Sodium 140 mmol/L (136-145)
[2021-10-08] MEDS ORDERED: Dextrose 5 % And 0.9 % NaCl 1,000 ML IV SCH (07:00)
[2021-10-08] MEDS ORDERED: Acetaminophen 650 MG Suppository PR PRN (08:24)
[2021-10-08] MEDS ORDERED: Ondansetron PF 4 MG/2 ML Vial IVP PRN (08:24)
[2021-10-08] MEDS ORDERED: Melatonin 3 MG TAB PO PRN (08:26)
[2021-10-08] MEDS ORDERED: Hydrochlorothiazide 25 MG TAB PO SCH (09:00)
[2021-10-08] MEDS ORDERED: Atenolol 25 MG TAB PO SCH (09:00)
[2021-10-08] MEDS ORDERED: Non-Formulary Item 1 EACH (Hydrochlorothiazide [Hydrochlorothiazide] 12.5 MG Capsule) PO SCH (09:00)
[2021-10-08] MEDS ORDERED: Montelukast Sodium 10 mg Tablet PO SCH (09:00)
[2021-10-08 11:00] VITALS: BMI 33.2
[2021-10-08 12:14] VITALS: BP 166/83; TEMP 97.5
[2021-10-08] MEDS ORDERED: Pravastatin Sodium 20 MG TAB PO SCH (21:00)
[2021-10-08] MEDS ORDERED: Simvastatin 10 MG TAB PO SCH (21:00)
[2021-10-08] MEDS ORDERED: Non-Formulary Item 1 EACH (Losartan Potassium [Losartan Potassium] 50 MG Tablet) PO SCH (21:00)
[2021-10-08] MEDS ORDERED: Famotidine 20 MG TAB PO SCH (21:00)
[2021-10-08] MEDS ORDERED: Non-Formulary Item 1 EACH (Famotidine [Pepcid] 40 MG Tablet) PO SCH (21:00)
[2021-10-08] MEDS ORDERED: Losartan 25 MG TAB PO SCH (21:00)
== END 2021-10-08 12:00 | disposition home or self-care (01) | DRG 395 ==
LOC: ERS 02:59 → SURG B 05:24
PROVIDERS: ADMIT Student in an Organized Health Care Education/Training Program; ATTEND Student in an Organized Health Care Education/Training Program
DX: K64.9 Unspecified hemorrhoids (principal); E78.5 Hyperlipidemia, unspecified; K21.9 Gastro-esophageal reflux disease without esophagitis; I10 Essential (primary) hypertension; Z88.8 Allergy status to other drugs, medicaments and biological substances; Z79.899 Other long term (current) drug therapy; Z90.710 Acquired absence of both cervix and uterus; Z98.51 Tubal ligation status; Z80.49 Family history of malignant neoplasm of other genital organs
CPT/HCPCS: 36415; 80053; 85025; 85610; 85730; 99284; J7042

== ENCOUNTER 2022-02-17 15:03 | Outpatient (CLI) | payer MEDICARE, OTHER | END 2022-02-17 15:04 | disposition home or self-care (01) | LOC: BICRAD 15:03 | PROVIDERS: ATTEND Family Medicine | DX: I35.0 Nonrheumatic aortic (valve) stenosis (principal) | CPT/HCPCS: 71046 ==

== ENCOUNTER 2022-03-14 10:16 | Outpatient (CLI) | payer MEDICARE, OTHER | END 2022-03-14 10:17 | disposition home or self-care (01) | LOC: BICMAMMO 10:16 | PROVIDERS: ATTEND Family Medicine | DX: Z12.31 Encounter for screening mammogram for malignant neoplasm of breast (principal) | CPT/HCPCS: 77063; 77067 ==

== ENCOUNTER 2022-06-16 09:44 | Outpatient (CLI) | payer MEDICARE, OTHER | END 2022-06-16 09:45 | disposition home or self-care (01) | LOC: ULT 09:44 | PROVIDERS: ATTEND Orthopaedic Surgery | DX: M79.662 Pain in left lower leg (principal) ==

== ENCOUNTER 2022-06-18 10:13 | Emergency (ER) | payer MEDICARE, OTHER ==
[2022-06-18 12:22] LABS: Bilirubin Negative (Negative); Blood, Urine Negative (Negative); Clarity Clear (Clear); Glucose, Urine (Dipstick) Normal (Negative); Ketone, Urine Negative (Negative); Leukocyte Negative Leu/uL (Negative); Nitrite Negative (Negative); Protein, Urine (Dipstick) Negative (Neg-Trace); Specific Gravity, Urine 1.007 (1.002-1.036); Urobilinogen Normal mg/dL (Less than 2)
== END 2022-06-18 12:52 | disposition home or self-care (01) ==
LOC: ERS 10:13
DX: R39.12 Poor urinary stream (principal); E78.00 Pure hypercholesterolemia, unspecified; I10 Essential (primary) hypertension; Z79.899 Other long term (current) drug therapy; Z87.891 Personal history of nicotine dependence
CPT/HCPCS: 51701; 81003; 87086

== ENCOUNTER 2022-11-08 13:25 | Outpatient (CLI) | payer MEDICARE, OTHER ==
[2022-11-08 15:41] LABS: #Basophils 0.1 10x3/uL (0.0-0.2); #Eosinphils 0.2 10x3/uL (0.0-0.5); #Monocytes 0.7 10x3/uL (0.0-1.1); #Neutrophils 4.8 10x3/uL (1.5-8.4); %Basophils 1.5 % (0.0-2.0); %Eosinophils 2.3 % (0.0-6.0); %Lymphocytes 29.4 % (18.0-47.0); %Monocytes 7.9 % (0.0-10.0); %Neutrophils 58.5 % (40.0-75.0); Hematocrit 41.5 % (34.9-44.5); Hemoglobin 13.3 g/dL (12.0-15.5); Mean Corpuscular Hemoglobin 27.8 pg (27.0-33.0); Mean Corpuscular Volume 86.6 fl (81.6-98.3); Mean Platelet Volume 10.1 fl (7.4-10.4); Platelet Count 274 10x3/uL (150-450); RBC Distribution Width 13.5 % (11.5-14.5); Red Blood Cell (RBC) Count 4.79 10x6/uL (3.90-5.03); White Blood Cell (WBC) Count 8.2 10x3/uL (3.5-10.5)
== END 2022-11-08 13:26 | disposition home or self-care (01) ==
LOC: LABBT 13:25
PROVIDERS: ATTEND Orthopaedic Surgery
DX: Z01.812 Encounter for preprocedural laboratory examination (principal); G56.01 Carpal tunnel syndrome, right upper limb
CPT/HCPCS: 85025

== ENCOUNTER 2022-11-10 06:56 | Day surgery (SDC) | payer MEDICARE, OTHER ==
[2022-11-08 14:29] VITALS: BMI 32.5
[2022-11-10] MEDS ORDERED: EPINEPHrine 1 MG/ML AMP ONE (09:13)
[2022-11-10] MEDS ORDERED: Lidocaine 1% (PF) 30 ML VIAL ONE (09:13)
[2022-11-10] MEDS ORDERED: Sodium Chloride 0.9% 100 ML ONE (09:42)
[2022-11-10] MEDS ORDERED: CEFAZOLIN 2 GM VIAL ONE (09:42)
[2022-11-10] MEDS ORDERED: Midazolam HCl 2 mg/2 ml Vial ONE (09:43)
[2022-11-10] MEDS ORDERED: fentaNYL PF 100 MCG/2 ML SYRINGE ONE (09:44)
[2022-11-10] MEDS ORDERED: Ketamine 50 MG/ML (10ML VIAL) ONE (09:44)
[2022-11-10] MEDS ORDERED: Propofol 500 MG/50 ML VIAL ONE (09:44)
== END 2022-11-10 11:25 | disposition home or self-care (01) ==
LOC: SDC 06:56
PROVIDERS: ATTEND Orthopaedic Surgery
PROC: 01N50ZZ Release Median Nerve, Open Approach (ICD-10-PCS; principal; 2022-11-10)
DX: G56.01 Carpal tunnel syndrome, right upper limb (principal); I10 Essential (primary) hypertension; K21.9 Gastro-esophageal reflux disease without esophagitis; Z87.891 Personal history of nicotine dependence; Z90.710 Acquired absence of both cervix and uterus; Z96.652 Presence of left artificial knee joint; Z79.899 Other long term (current) drug therapy; Z88.8 Allergy status to other drugs, medicaments and biological substances
CPT/HCPCS: 93005; 93010; J0171; J2001; J2250; J2704; J3490

== ENCOUNTER 2022-12-27 15:49 | Emergency (ER) | payer MEDICARE, OTHER ==
[~2022-12-27 15:49] MED LIST changes: -ISOVUE-370 76%-LOCM 1 ML ONE; +Iopamidol-370 76% 500 ML MDV (1 ML CHARGE) ONE
[2022-12-27 17:09] LABS: #Basophils 0.1 thou/uL (0.0-0.2); #Eosinphils 0.2 thou/uL (0.0-0.7); #Monocytes 0.7 thou/uL (0.11-0.59); #Neutrophils 4.9 thou/uL (1.40-6.50); %Basophils 1.6 % (0.0-1.0); %Eosinophils 2.7 % (0.0-10.0); %Monocytes 8.4 % (0.0-10.0); %Neutrophils 55.8 % (42.0-75.0); Hematocrit 43.8 % (36.0-47.0); Hemoglobin 14.1 g/dL (12.0-16.0); Mean Corpuscular HGB CONC 32.2 g/dL (32.0-36.0); Mean Corpuscular Hemoglobin 28.9 pg (27.0-31.0); Mean Corpuscular Volume 89.8 fl (78.0-98.0); Mean Platelet Volume 9.7 fL (7.4-10.4); Platelet Count 240 10x3/uL (130-400); RBC Distribution Width 12.7 % (11.5-14.5); Red Blood Cell (RBC) Count 4.88 mill/uL (4.20-5.40); White Blood Cell (WBC) Count 8.7 10x3/uL (4.8-10.8)
[2022-12-27 17:43] LABS: Troponin I Less than 0.010 ng/mL (< 0.028)
[2022-12-27 17:51] LABS: ALT (SGPT) 11 U/L (8-55); AST (SGOT) 13 U/L (5-34); Albumin 4.6 g/dL (3.4-4.8); Alkaline Phosphatase 65 U/L (40-110); Anion Gap 15 mmol/L (10-20); BUN (Urea Nitrogen) 11 mg/dL (9.8-20.1); Bilirubin, Total 0.3 mg/dL (0.2-1.2); Calc. Creatinine Clearance 0 mL/min (70-130); Calcium 9.6 mg/dL (7.8-10.44); Carbon Dioxide 25 mmol/L (23-31); Chloride 100 mmol/L (98-107); Estimated GFR 75; Globulin 2.8 g/dL (2.4-3.5); Glucose 110 mg/dL (83-110); Lipase 18 U/L (8-78); Potassium 3.4 mmol/L (3.5-5.1); Protein, Total 7.4 g/dL (5.8-8.1); Sodium 137 mmol/L (136-145)
[2022-12-27 18:41] LABS: Bacteria/HPF None Seen HPF (None Seen); Bilirubin Negative (Negative); Blood, Urine Negative (Negative); CAUTI Indications for Culture Dysuria,urgency,freq; Clarity Clear (Clear); Glucose, Urine (Dipstick) Normal (Negative); Ketone, Urine Negative (Negative); Leukocyte Negative Leu/uL (Negative); Nitrite Negative (Negative); Protein, Urine (Dipstick) Negative (Neg-Trace); RBC/HPF 0-3 HPF (0-3); Squamous Epithelial None Seen HPF (0-3); Urobilinogen Normal mg/dL (Less than 2); WBC/HPF 0-3 HPF (0-3)
[2022-12-27 18:47] LABS: Urine Culture Reflex No No
== END 2022-12-27 19:30 | disposition home or self-care (01) ==
LOC: ERS 15:49
DX: R10.31 Right lower quadrant pain (principal); E78.00 Pure hypercholesterolemia, unspecified; I10 Essential (primary) hypertension; Z87.891 Personal history of nicotine dependence; Z79.899 Other long term (current) drug therapy
CPT/HCPCS: 36415; 74177; 80053; 81001; 83690; 84484; 85025; 93005; Q9967

== ENCOUNTER 2023-01-30 16:00 | Emergency (ER) | payer MEDICARE, OTHER ==
[2023-01-30 16:50] LABS: Bilirubin Negative (Negative); Blood, Urine 3+ (Negative); CAUTI Indications for Culture Acute Hematuria; Clarity Clear (Clear); Glucose, Urine (Dipstick) Normal (Negative); Ketone, Urine Negative (Negative); Leukocyte 75 Leu/uL (Negative); Nitrite Negative (Negative); Protein, Urine (Dipstick) 20 mg/dL (Neg-Trace); RBC/HPF 21-50 HPF (0-3); Specific Gravity, Urine 1.005 (1.002-1.036); Squamous Epithelial None Seen HPF (0-3); Urobilinogen Normal mg/dL (Less than 2)
[2023-01-30 17:02] LABS: Bacteria/HPF 1+ HPF (None Seen)
[2023-01-30 17:03] LABS: Urine Culture Reflex No No
[2023-01-30 17:11] LABS: #Basophils 0.1 thou/uL (0.0-0.2); #Eosinphils 0.2 thou/uL (0.0-0.7); #Monocytes 0.6 thou/uL (0.11-0.59); #Neutrophils 6.3 thou/uL (1.40-6.50); %Eosinophils 1.6 % (0.0-10.0); %Lymphocytes 22.9 % (21.0-51.0); %Monocytes 6.6 % (0.0-10.0); %Neutrophils 67.4 % (42.0-75.0); Hematocrit 40.2 % (36.0-47.0); Hemoglobin 13.2 g/dL (12.0-16.0); Mean Corpuscular HGB CONC 32.8 g/dL (32.0-36.0); Mean Corpuscular Hemoglobin 29.2 pg (27.0-31.0); Mean Corpuscular Volume 88.9 fl (78.0-98.0); Mean Platelet Volume 9.7 fL (7.4-10.4); Platelet Count 248 10x3/uL (130-400); RBC Distribution Width 12.6 % (11.5-14.5); Red Blood Cell (RBC) Count 4.52 mill/uL (4.20-5.40); White Blood Cell (WBC) Count 9.3 10x3/uL (4.8-10.8)
[2023-01-30 17:27] LABS: PTT 27.8 sec (22.9-36.1); Prothrombin Time 13.4 sec (12.0-14.7)
[2023-01-30] MEDS ORDERED: Ondansetron ODT 4 MG TAB ONE (17:32)
[2023-01-30 17:49] LABS: ALT (SGPT) 10 U/L (8-55); AST (SGOT) 15 U/L (5-34); Albumin 3.9 g/dL (3.4-4.8); Alkaline Phosphatase 65 U/L (40-110); Anion Gap 15 mmol/L (10-20); BUN (Urea Nitrogen) 9 mg/dL (9.8-20.1); Bilirubin, Total 0.4 mg/dL (0.2-1.2); Calc. Creatinine Clearance 0 mL/min (70-130); Calcium 9.2 mg/dL (7.8-10.44); Carbon Dioxide 21 mmol/L (23-31); Chloride 100 mmol/L (98-107); Estimated GFR 79; Globulin 3.2 g/dL (2.4-3.5); Glucose 167 mg/dL (83-110); Potassium 3.4 mmol/L (3.5-5.1); Protein, Total 7.1 g/dL (5.8-8.1); Sodium 133 mmol/L (136-145)
[2023-01-30] MEDS ORDERED: cefTRIAXone (ROCEPHIN) 1 GM VIAL ONE (18:12)
[2023-01-30] MEDS ORDERED: Lidocaine 1% MPF 2 ML VIAL ONE (18:12)
== END 2023-01-30 18:27 | disposition home or self-care (01) ==
LOC: ERS 16:00
DX: N39.0 Urinary tract infection, site not specified (principal); R31.0 Gross hematuria; I10 Essential (primary) hypertension; E78.00 Pure hypercholesterolemia, unspecified; Z87.891 Personal history of nicotine dependence; Z79.899 Other long term (current) drug therapy
CPT/HCPCS: 36415; 74176; 80053; 81001; 85025; 85610; 85730; 87077; 87086; 87186; 96372; J0696; Q0162

== ENCOUNTER 2023-04-19 05:33 | Day surgery (SDC) | payer MEDICARE, OTHER ==
[2023-04-17 11:44] VITALS: BMI 32.1
[2023-04-19] MEDS ORDERED: EPINEPHrine 1 MG/ML VIAL ONE (06:30)
[2023-04-19] MEDS ORDERED: Vancomycin 1 GM VIAL ONE (06:30)
[2023-04-19] MEDS ORDERED: Bupivacaine PF 0.5% 30 ML VIAL ONE (06:31)
[2023-04-19] MEDS ORDERED: Thrombin 5000 UNITS/5 ML VIAL ONE (06:31)
[2023-04-19] MEDS ORDERED: Famotidine/PF 20 mg/2ml Vial ONE (06:33)
[2023-04-19] MEDS ORDERED: CEFAZOLIN 2 GM VIAL ONE ×2 (06:38→14:14)
[2023-04-19] MEDS ORDERED: Sodium Chloride 0.9% 100 ML ONE ×2 (06:38→14:14)
[2023-04-19 06:39] LABS: #Basophils 0.1 thou/uL (0.0-0.2); #Eosinphils 0.1 thou/uL (0.0-0.7); #Monocytes 0.6 thou/uL (0.11-0.59); #Neutrophils 4.7 thou/uL (1.40-6.50); %Basophils 1.4 % (0.0-1.0); %Eosinophils 1.9 % (0.0-10.0); %Monocytes 8.3 % (0.0-10.0); Mean Corpuscular HGB CONC 33.3 g/dL (32.0-36.0); Mean Corpuscular Hemoglobin 29.1 pg (27.0-31.0); Mean Corpuscular Volume 87.2 fl (78.0-98.0); Mean Platelet Volume 10.2 fL (7.4-10.4); Platelet Count 263 10x3/uL (130-400); RBC Distribution Width 12.8 % (11.5-14.5); Red Blood Cell (RBC) Count 4.47 mill/uL (4.20-5.40); White Blood Cell (WBC) Count 7.3 10x3/uL (4.8-10.8)
[2023-04-19] MEDS ORDERED: PROPOFOL 20 ML ONE (06:59)
[2023-04-19] MEDS ORDERED: fentaNYL 50 mcg/mL 1 mL Vial ONE ×4 (06:59→10:33)
[2023-04-19] MEDS ORDERED: Ondansetron PF 4 MG/2 ML Vial ONE ×2 (07:04→10:33)
[2023-04-19] MEDS ORDERED: Dexamethasone 20 MG/5 ML VIAL ONE (07:04)
[2023-04-19] MEDS ORDERED: PHENYLEPHRINE-NS 100 MCG/ML 10 ML SYRINGE ONE (07:04)
[2023-04-19] MEDS ORDERED: Rocuronium Bromide 10 MG/ML (10ML VIAL) ONE (07:04)
[2023-04-19] MEDS ORDERED: Lidocaine 1% PF 5 ML VIAL ONE (07:13)
[2023-04-19] MEDS ORDERED: SUGAMMADEX SODIUM 200 MG/2 ML VIAL ONE (07:34)
[2023-04-19] MEDS ORDERED: ePHEDrine Sulfate 50 MG/10 ML VIAL ONE (07:36)
[2023-04-19] MEDS ORDERED: Ketorolac Tromethamine 30 MG (1 mL) VIAL ONE (07:47)
[2023-04-19] MEDS ORDERED: Vasopressin 20 UNITS/ML VIAL ONE (09:56)
[2023-04-19] MEDS ORDERED: Acetaminophen 325 MG TAB ONE (15:38)
== END 2023-04-19 16:45 ==
LOC: SDC 05:33
PROVIDERS: ATTEND Neurological Surgery
PROC: 0SG30KJ Fusion of Lumbosacral Joint with Nonautologous Tissue Substitute, Posterior Approach, Anterior Column, Open Approach (ICD-10-PCS; principal; 2023-04-19)
PROC: 0SG10JJ Fusion of 2 or more Lumbar Vertebral Joints with Synthetic Substitute, Posterior Approach, Anterior Column, Open Approach (ICD-10-PCS; 2023-04-19)
DX: M51.17 Intervertebral disc disorders with radiculopathy, lumbosacral region (principal); M48.07 Spinal stenosis, lumbosacral region; M19.90 Unspecified osteoarthritis, unspecified site; J45.909 Unspecified asthma, uncomplicated; E78.5 Hyperlipidemia, unspecified; I11.9 Hypertensive heart disease without heart failure; Z90.710 Acquired absence of both cervix and uterus; Z96.659 Presence of unspecified artificial knee joint; Z98.890 Other specified postprocedural states; Z87.891 Personal history of nicotine dependence; Z79.82 Long term (current) use of aspirin; Z79.899 Other long term (current) drug therapy; Z88.8 Allergy status to other drugs, medicaments and biological substances
CPT/HCPCS: 20930; 20936; 22612; 22614; 22842; 63047; 63048; 85025; J0171; J3010; C1713; C1889; J0665; J1100; J1885; J2405; J2704; J3370; J3490; S0028

== ENCOUNTER 2023-04-28 00:05 | Emergency (ER) | payer MEDICARE, OTHER ==
[2023-04-28] MEDS ORDERED: Cyclobenzaprine 10 MG TAB ONE (00:42)
[2023-04-28] MEDS ORDERED: Ketorolac Tromethamine 30 MG (1 mL) VIAL ONE (00:42)
[2023-04-28 01:09] LABS: #Basophils 0.1 thou/uL (0.0-0.2); #Eosinphils 0.1 thou/uL (0.0-0.7); #Monocytes 0.9 thou/uL (0.11-0.59); #Neutrophils 5.1 thou/uL (1.40-6.50); %Basophils 0.7 % (0.0-1.0); %Eosinophils 1.5 % (0.0-10.0); %Lymphocytes 33.2 % (21.0-51.0); %Monocytes 9.8 % (0.0-10.0); %Neutrophils 54.1 % (42.0-75.0); Hematocrit 31.2 % (36.0-47.0); Hemoglobin 10.4 g/dL (12.0-16.0); Mean Corpuscular HGB CONC 33.3 g/dL (32.0-36.0); Mean Corpuscular Hemoglobin 28.6 pg (27.0-31.0); Mean Corpuscular Volume 85.7 fl (78.0-98.0); Mean Platelet Volume 9.8 fL (7.4-10.4); Platelet Count 329 10x3/uL (130-400); RBC Distribution Width 12.6 % (11.5-14.5); Red Blood Cell (RBC) Count 3.64 mill/uL (4.20-5.40); White Blood Cell (WBC) Count 9.4 10x3/uL (4.8-10.8)
[2023-04-28 01:29] LABS: ALT (SGPT) 16 U/L (8-55); AST (SGOT) 14 U/L (5-34); Albumin 3.9 g/dL (3.4-4.8); Alkaline Phosphatase 69 U/L (40-110); Anion Gap 12 mmol/L (10-20); BUN (Urea Nitrogen) 13 mg/dL (9.8-20.1); Bilirubin, Total 0.4 mg/dL (0.2-1.2); Calc. Creatinine Clearance 0 mL/min (70-130); Calcium 8.9 mg/dL (7.8-10.44); Carbon Dioxide 28 mmol/L (23-31); Chloride 99 mmol/L (98-107); Estimated GFR 76; Globulin 2.5 g/dL (2.4-3.5); Glucose 132 mg/dL (83-110); Potassium 3.9 mmol/L (3.5-5.1); Protein, Total 6.4 g/dL (5.8-8.1); Sodium 135 mmol/L (136-145)
== END 2023-04-28 08:05 ==
LOC: ERS 00:05
DX: M54.50 Low back pain, unspecified (principal); I10 Essential (primary) hypertension; E78.00 Pure hypercholesterolemia, unspecified; Z55.6 Problems related to health literacy; Z87.891 Personal history of nicotine dependence
CPT/HCPCS: 36415; 74176; 80053; 85025; 85379; 86140; 93005; 96374; J1885

== ENCOUNTER 2023-05-14 22:03 | Emergency (ER) | payer MEDICARE, OTHER ==
[~2023-05-14 22:03] MED LIST changes: +Iopamidol 370 76% 100 ML VIAL ONE; -Iopamidol-370 76% 500 ML MDV (1 ML CHARGE) ONE
[2023-05-14 23:29] LABS: Bacteria/HPF None Seen HPF (None Seen); Bilirubin Negative (Negative); Blood, Urine Negative (Negative); CAUTI Indications for Culture Pelvic or flank pain; Clarity Clear (Clear); Glucose, Urine (Dipstick) Normal (Negative); Ketone, Urine Negative (Negative); Leukocyte Negative Leu/uL (Negative); Nitrite Negative (Negative); Protein, Urine (Dipstick) Negative (Neg-Trace); RBC/HPF 0-3 HPF (0-3); Specific Gravity, Urine 1.007 (1.002-1.036); Squamous Epithelial 0-3 HPF (0-3); Urobilinogen Normal mg/dL (Less than 2); WBC/HPF 0-3 HPF (0-3); pH, Urine 6.5 (5.0-9.0)
[2023-05-14 23:30] LABS: Urine Culture Reflex No No
[2023-05-14] MEDS ORDERED: Dicyclomine 20 MG/2 ML VIAL ONE (23:37)
[2023-05-15 00:30] LABS: #Basophils 0.1 thou/uL (0.0-0.2); #Eosinphils 0.1 thou/uL (0.0-0.7); #Monocytes 0.6 thou/uL (0.11-0.59); #Neutrophils 5.1 thou/uL (1.40-6.50); %Basophils 1.1 % (0.0-1.0); %Eosinophils 1.4 % (0.0-10.0); %Lymphocytes 25.5 % (21.0-51.0); %Neutrophils 63.7 % (42.0-75.0); Hematocrit 35.9 % (36.0-47.0); Hemoglobin 11.4 g/dL (12.0-16.0); Mean Corpuscular HGB CONC 31.8 g/dL (32.0-36.0); Mean Corpuscular Hemoglobin 27.1 pg (27.0-31.0); Mean Corpuscular Volume 85.5 fl (78.0-98.0); Mean Platelet Volume 9.6 fL (7.4-10.4); Platelet Count 321 10x3/uL (130-400); RBC Distribution Width 12.3 % (11.5-14.5)
[2023-05-15 00:48] LABS: ALT (SGPT) 9 U/L (8-55); AST (SGOT) 14 U/L (5-34); Albumin 4.2 g/dL (3.4-4.8); Alkaline Phosphatase 100 U/L (40-110); Anion Gap 18 mmol/L (10-20); BUN (Urea Nitrogen) 10 mg/dL (9.8-20.1); Bilirubin, Total 0.5 mg/dL (0.2-1.2); Calc. Creatinine Clearance 0 mL/min (70-130); Calcium 8.9 mg/dL (7.8-10.44); Carbon Dioxide 23 mmol/L (23-31); Chloride 100 mmol/L (98-107); Estimated GFR 85; Globulin 2.7 g/dL (2.4-3.5); Glucose 115 mg/dL (83-110); Lipase 17 U/L (8-78); Potassium 3.9 mmol/L (3.5-5.1); Protein, Total 6.9 g/dL (5.8-8.1); Sodium 137 mmol/L (136-145)
== END 2023-05-15 01:55 | disposition home or self-care (01) ==
LOC: ERS 22:03
DX: R10.31 Right lower quadrant pain (principal); M54.50 Low back pain, unspecified; I10 Essential (primary) hypertension; Z87.891 Personal history of nicotine dependence
CPT/HCPCS: 36415; 74177; 80053; 81001; 83690; 85025; 93005; 96372; Q9967

== ENCOUNTER 2023-08-10 09:11 | Emergency (ER) | payer MEDICARE, OTHER ==
[2023-08-10 09:43] LABS: %Basophils 1.4 % (0.0-1.0); %Eosinophils 2.4 % (0.0-10.0); %Lymphocytes 21.9 % (21.0-51.0); %Monocytes 7.9 % (0.0-10.0); Hematocrit 39.5 % (36.0-47.0); Hemoglobin 13.1 g/dL (12.0-16.0); Mean Corpuscular HGB CONC 33.2 g/dL (32.0-36.0); Mean Corpuscular Hemoglobin 26.6 pg (27.0-31.0); Mean Corpuscular Volume 80.3 fL (78.0-98.0); Mean Platelet Volume 9.6 fL (7.4-10.4); Platelet Count 269 10x3/uL (130-400); RBC Distribution Width 14.6 % (11.5-14.5); Red Blood Cell (RBC) Count 4.92 mill/uL (4.20-5.40)
[2023-08-10] MEDS ORDERED: Ondansetron PF 4 MG/2 ML Vial ONE (09:55)
[2023-08-10 10:04] LABS: ALT (SGPT) 9 U/L (8-55); AST (SGOT) 15 U/L (5-34); Albumin 3.9 g/dL (3.4-4.8); Alkaline Phosphatase 83 U/L (40-110); Anion Gap 14 mmol/L (10-20); BUN (Urea Nitrogen) 12 mg/dL (9.8-20.1); Bilirubin, Total 0.6 mg/dL (0.2-1.2); Calc. Creatinine Clearance 0 mL/min (70-130); Calcium 9.9 mg/dL (7.8-10.44); Carbon Dioxide 25 mmol/L (23-31); Chloride 101 mmol/L (98-107); Estimated GFR 74; Globulin 3.6 g/dL (2.4-3.5); Glucose 127 mg/dL (83-110); Lipase 21 U/L (8-78); Potassium 3.9 mmol/L (3.5-5.1); Protein, Total 7.5 g/dL (5.8-8.1); Sodium 136 mmol/L (136-145)
[2023-08-10 12:10] LABS: Bacteria/HPF None Seen HPF (None Seen); Bilirubin Negative (Negative); Blood, Urine Negative (Negative); CAUTI Indications for Culture Pelvic or flank pain; Clarity Clear (Clear); Glucose, Urine (Dipstick) Normal (Negative); Ketone, Urine Negative (Negative); Leukocyte Negative Leu/uL (Negative); Nitrite Negative (Negative); Protein, Urine (Dipstick) Negative (Neg-Trace); RBC/HPF 0-3 HPF (0-3); Squamous Epithelial None Seen HPF (0-3); Urobilinogen Normal mg/dL (Less than 2); WBC/HPF 0-3 HPF (0-3)
[2023-08-10 12:13] LABS: Urine Culture Reflex No No
== END 2023-08-10 13:11 | disposition home or self-care (01) ==
LOC: ERS 09:11
DX: R33.9 Retention of urine, unspecified (principal); R10.30 Lower abdominal pain, unspecified; I10 Essential (primary) hypertension; K21.9 Gastro-esophageal reflux disease without esophagitis; E78.00 Pure hypercholesterolemia, unspecified; J42 Unspecified chronic bronchitis; Z87.891 Personal history of nicotine dependence; Z79.899 Other long term (current) drug therapy; Z55.6 Problems related to health literacy
CPT/HCPCS: 51701; 80053; 81001; 83690; 83735; 85025; 87480; 87510; 87660; 93005; 96374; 99284; J2405

== ENCOUNTER 2023-09-07 11:12 | Emergency (ER) | payer MEDICARE, OTHER ==
[2023-09-07] MEDS ORDERED: Famotidine 20 MG TAB ONE (11:42)
[2023-09-07 14:06] LABS: #Basophils 0.04 10x3/uL (0.0-0.2); #Eosinphils Less than 0.03 10x3/uL (0.0-0.7); %Basophils 0.3 % (0.0-1.0); %Eosinophils 0.1 % (0.0-10.0); %Lymphocytes 11.2 % (21.0-51.0); %Monocytes 4.8 % (0.0-10.0); Hematocrit 40.9 % (36.0-47.0); Hemoglobin 13.5 g/dL (12.0-16.0); Mean Corpuscular Hemoglobin 27.1 pg (27.0-31.0); Mean Platelet Volume 9.7 fL (7.4-10.4); Platelet Count 313 10x3/uL (130-400); Red Blood Cell (RBC) Count 4.99 mill/uL (4.20-5.40)
[2023-09-07 14:25] LABS: ALT (SGPT) 12 U/L (8-55); AST (SGOT) 17 U/L (5-34); Albumin 4.6 g/dL (3.4-4.8); Alkaline Phosphatase 83 U/L (40-110); Anion Gap 19 mmol/L (10-20); BUN (Urea Nitrogen) 12 mg/dL (9.8-20.1); Bilirubin, Total 0.9 mg/dL (0.2-1.2); Calc. Creatinine Clearance 0 mL/min (70-130); Calcium 10.2 mg/dL (7.8-10.44); Carbon Dioxide 20 mmol/L (23-31); Chloride 96 mmol/L (98-107); Estimated GFR 75; Globulin 3.3 g/dL (2.4-3.5); Glucose 116 mg/dL (83-110); Potassium 4.3 mmol/L (3.5-5.1); Protein, Total 7.9 g/dL (5.8-8.1); Sodium 131 mmol/L (136-145)
[2023-09-07 14:27] LABS: Troponin I Less than 0.010 ng/mL (< 0.028)
[2023-09-07] MEDS ORDERED: hydrALAZINE 10 MG TAB ONE (14:43)
== END 2023-09-07 16:00 | disposition home or self-care (01) ==
LOC: ERS 11:12
DX: I10 Essential (primary) hypertension (principal); Z87.891 Personal history of nicotine dependence; Z79.899 Other long term (current) drug therapy
CPT/HCPCS: 36415; 71045; 80053; 83880; 84484; 85025; 93005

== ENCOUNTER 2023-09-08 15:29 | Emergency (ER) | payer MEDICARE, OTHER ==
[2023-09-08] MEDS ORDERED: Iopamidol-370 76% 500 ML MDV (1 ML CHARGE) ONE (15:56)
[2023-09-08 18:34] LABS: #Basophils 0.08 10x3/uL (0.0-0.2); %Basophils 0.8 % (0.0-1.0); %Eosinophils 0.6 % (0.0-10.0); %Lymphocytes 22.5 % (21.0-51.0); %Monocytes 8.1 % (0.0-10.0); %Neutrophils 67.7 % (42.0-75.0); Hematocrit 38.4 % (36.0-47.0); Hemoglobin 13.1 g/dL (12.0-16.0); Mean Corpuscular HGB CONC 34.1 g/dL (32.0-36.0); Mean Corpuscular Volume 79.2 fL (78.0-98.0); Mean Platelet Volume 9.5 fL (7.4-10.4); Platelet Count 305 10x3/uL (130-400); RBC Distribution Width 14.8 % (11.5-14.5); Red Blood Cell (RBC) Count 4.85 mill/uL (4.20-5.40)
[2023-09-08 18:38] LABS: Bacteria/HPF None Seen HPF (None Seen); Bilirubin Negative (Negative); Blood, Urine Trace (Negative); CAUTI Indications for Culture Pelvic or flank pain; Clarity Clear (Clear); Glucose, Urine (Dipstick) Normal (Negative); Ketone, Urine Negative (Negative); Leukocyte Negative Leu/uL (Negative); Nitrite Negative (Negative); Protein, Urine (Dipstick) 20 mg/dL (Neg-Trace); RBC/HPF 0-3 HPF (0-3); Specific Gravity, Urine 1.012 (1.002-1.036); Squamous Epithelial 0-3 HPF (0-3); Urobilinogen Normal mg/dL (Less than 2); WBC/HPF 0-3 HPF (0-3)
[2023-09-08 18:39] LABS: Urine Culture Reflex No No
[2023-09-08 18:51] LABS: ALT (SGPT) 12 U/L (8-55); AST (SGOT) 17 U/L (5-34); Albumin 4.3 g/dL (3.4-4.8); Alkaline Phosphatase 76 U/L (40-110); Anion Gap 16 mmol/L (10-20); BUN (Urea Nitrogen) 12 mg/dL (9.8-20.1); Bilirubin, Total 0.9 mg/dL (0.2-1.2); Calc. Creatinine Clearance 0 mL/min (70-130); Calcium 9.7 mg/dL (7.8-10.44); Carbon Dioxide 19 mmol/L (23-31); Chloride 93 mmol/L (98-107); Estimated GFR 75; Globulin 3.2 g/dL (2.4-3.5); Glucose 115 mg/dL (83-110); Lipase 23 U/L (8-78); Potassium 3.8 mmol/L (3.5-5.1); Protein, Total 7.5 g/dL (5.8-8.1); Sodium 124 mmol/L (136-145)
== END 2023-09-08 20:45 | disposition home or self-care (01) ==
LOC: ERS 15:29
DX: E87.1 Hypo-osmolality and hyponatremia (principal); E78.00 Pure hypercholesterolemia, unspecified; K21.9 Gastro-esophageal reflux disease without esophagitis; I10 Essential (primary) hypertension; Z79.899 Other long term (current) drug therapy; Z79.82 Long term (current) use of aspirin; Z87.891 Personal history of nicotine dependence
CPT/HCPCS: 74177; 80053; 81001; 83690; 85025; Q9967